=== PATIENT | male | born 1955 | race Caucasian/White ===

== ENCOUNTER 2020-08-24 02:02 | Inpatient (IN) | payer MEDICARE, OTHER ==
[2020-08-24 02:49] LABS: #Basophils 0.1 thou/uL (0.0-0.2); #Eosinphils 0.1 thou/uL (0.0-0.7); #Lymphocytes 1.5 thou/uL (1.20-3.40); #Monocytes 0.6 thou/uL (0.11-0.59); #Neutrophils 6.1 thou/uL (1.40-6.50); %Basophils 0.7 % (0.0-1.0); %Eosinophils 0.8 % (0.0-10.0); %Lymphocytes 18.4 % (21.0-51.0); %Monocytes 7.3 % (0.0-10.0); %Neutrophils 72.8 % (42.0-75.0); Hemoglobin 9.2 g/dL (14.0-18.0); Mean Corpuscular HGB CONC 33.5 g/dL (32.0-36.0); Mean Corpuscular Hemoglobin 31.9 pg (27.0-31.0); Mean Corpuscular Volume 95.3 fL (78.0-98.0); Mean Platelet Volume 8.1 fL (7.4-10.4); Platelet Count 607 thou/uL (130-400); RBC Distribution Width 12.7 % (11.5-14.5); White Blood Cell (WBC) Count 8.4 thou/uL (4.8-10.8)
[2020-08-24 02:56] LABS: INR-International Normal Ratio 1.2; PTT 24.8 sec (22.9-36.1); Prothrombin Time 15.1 sec (12.0-14.7)
[2020-08-24 03:05] LABS: ALT (SGPT) 9 U/L (8-55); AST (SGOT) 16 U/L (5-34); Albumin 2.7 g/dL (3.4-4.8); Alkaline Phosphatase 46 U/L (40-110); Anion Gap 14 mmol/L (10-20); BUN (Urea Nitrogen) 30 mg/dL (8.4-25.7); Bilirubin, Total 0.3 mg/dL (0.2-1.2); Calc. Creatinine Clearance 0 mL/min (70-130); Calcium 8.2 mg/dL (7.8-10.44); Carbon Dioxide 23 mmol/L (23-31); Chloride 110 mmol/L (98-107); Globulin 2.4 g/dL (2.4-3.5); Glucose 136 mg/dL (80-115); Lipase 100 U/L (8-78); Potassium 4.4 mmol/L (3.5-5.1); Protein, Total 5.1 g/dL (5.8-8.1); Sodium 143 mmol/L (136-145)
[2020-08-24] MEDS ORDERED: Senokot S 8.6-50 MG TAB PO PRN (04:02)
[2020-08-24] MEDS ORDERED: Sodium Chloride 0.9% 1,000 ML IV SCH ×3 (04:15→08:00)
[2020-08-24 05:05] LABS: Bacteria/HPF None Seen HPF (None Seen); Bilirubin Negative (Negative); Blood, Urine Trace (Negative); Clarity Clear (Clear); Glucose, Urine (Dipstick) Normal (Negative); Ketone, Urine Negative (Negative); Leukocyte Negative Leu/uL (Negative); Nitrite Negative (Negative); Protein, Urine (Dipstick) Negative (Neg-Trace); RBC/HPF 0-3 HPF (0-3); Specific Gravity, Urine 1.031 (1.002-1.036); Squamous Epithelial 0-3 HPF (0-3); Urobilinogen Normal mg/dL (Less than 2); WBC/HPF 0-3 HPF (0-3); pH, Urine 6.5 (5.0-9.0)
[2020-08-24 05:16] LABS: Iron 60 ug/dL (65-175); Iron Binding Capacity, Total 273 mcg/dL (261-462)
[2020-08-24 06:03] LABS: Lactic Acid 2.3 mmol/L (0.5-2.2)
[2020-08-24 07:09] LABS: SARS-CoV-2 NAA Rapid Test Not Detected (NotDetected)
[2020-08-24 07:46] LABS: Hemoglobin 9.1 g/dL (14.0-18.0)
[2020-08-24] MEDS ORDERED: Loperamide HCl 2 MG CAP PO PRN (07:51)
[2020-08-24] MEDS ORDERED: Loratadine 10 MG TAB PO PRN (07:51)
[2020-08-24] MEDS ORDERED: GUAIFENESIN SF SOLN 200 MG/10 ML UDCUP PO PRN (07:51)
[2020-08-24] MEDS ORDERED: Cepastat Lozenges 1 LOZ PO PRN (07:51)
[2020-08-24] MEDS ORDERED: hydrALAZINE 20 MG/ML VIAL SLOW IVP PRN (07:51)
[2020-08-24] MEDS ORDERED: Ondansetron ODT 4 MG TAB PO PRN (07:51)
[2020-08-24] MEDS ORDERED: Calcium Carbonate 500 MG ChewTAB PO PRN (07:51)
[2020-08-24] MEDS ORDERED: Ondansetron PF 4 MG/2 ML Vial IVP PRN (07:51)
[2020-08-24] MEDS ORDERED: Sodium Chloride 0.65% Nasal 44 ML BOT EA NARE PRN (07:51)
[2020-08-24] MEDS ORDERED: PROPOFOL 200 MG/20 ML VIAL ONE (08:07)
[2020-08-24] MEDS ORDERED: EPINEPHrine 1 MG/10 ML Abboject SYRINGE ONE ×2 (08:07→10:17)
[2020-08-24] MEDS ORDERED: Lidocaine 1% PF 5 ML VIAL ONE (08:07)
[2020-08-24] MEDS ORDERED: Famotidine 20 MG TAB PO SCH (09:00)
[2020-08-24] MEDS ORDERED: Iopamidol-370 76% 500 ML 1 ML ONE (09:19)
[2020-08-24] MEDS ORDERED: Promethazine HCl 25 MG/ML VIAL IM PRN (09:54)
[2020-08-24] MEDS ORDERED: Ondansetron HCl/PF 4 MG/2 ML Vial IVP PRN (09:54)
[2020-08-24] MEDS ORDERED: Promethazine HCl 25 MG/ML VIAL SLOW IVP PRN (09:54)
[2020-08-24] MEDS ORDERED: Fentanyl 100 MCG/2 ML VIAL ONE (10:51)
[2020-08-24 11:53] VITALS: BMI 27.2
[2020-08-24] MEDS: Pantoprazole 40 MG VIAL IVP SCH ×2 (11:59→22:27)
[2020-08-24] MEDS: Morphine 2 MG/ML VIAL SLOW IVP PRN ×2 (11:59→22:27)
[2020-08-24 13:09] LABS: Hemoglobin 9.8 g/dL (14.0-18.0)
[2020-08-24] MEDS: Sodium Chloride 0.9% 1,000 ML IV SCH ×2 (13:23→22:27)
[2020-08-24 13:33] LABS: ALT (SGPT) 32 U/L (8-55); AST (SGOT) 98 U/L (5-34); Albumin 2.7 g/dL (3.4-4.8); Alkaline Phosphatase 76 U/L (40-110); Bilirubin, Total 1.4 mg/dL (0.2-1.2); Lipase 66 U/L (8-78); Protein, Total 5.2 g/dL (5.8-8.1)
[2020-08-24 19:14] LABS: Hemoglobin 10.3 g/dL (14.0-18.0)
[2020-08-24] MEDS: Zolpidem Tartrate 5 MG TAB PO PRN (22:28)
[2020-08-25 01:41] LABS: Hemoglobin 8.2 g/dL (14.0-18.0)
[2020-08-25 03:51] LABS: #Eosinphils 0.1 thou/uL (0.0-0.7); #Monocytes 0.8 thou/uL (0.11-0.59); #Neutrophils 8.9 thou/uL (1.40-6.50); %Basophils 0.2 % (0.0-1.0); %Eosinophils 0.6 % (0.0-10.0); %Lymphocytes 16.9 % (21.0-51.0); %Monocytes 6.8 % (0.0-10.0); %Neutrophils 75.5 % (42.0-75.0); Hemoglobin 8.1 g/dL (14.0-18.0); Mean Corpuscular HGB CONC 33.9 g/dL (32.0-36.0); Mean Corpuscular Volume 91.5 fL (78.0-98.0); Mean Platelet Volume 8.6 fL (7.4-10.4); Platelet Count 381 thou/uL (130-400); RBC Distribution Width 14.2 % (11.5-14.5); Red Blood Cell (RBC) Count 2.62 mill/uL (4.70-6.10); White Blood Cell (WBC) Count 11.7 thou/uL (4.8-10.8)
[2020-08-25 04:19] LABS: ALT (SGPT) 33 U/L (8-55); AST (SGOT) 59 U/L (5-34); Albumin 2.5 g/dL (3.4-4.8); Alkaline Phosphatase 73 U/L (40-110); Anion Gap 8 mmol/L (10-20); BUN (Urea Nitrogen) 18 mg/dL (8.4-25.7); Bilirubin, Total 0.9 mg/dL (0.2-1.2); Calc. Creatinine Clearance 132 mL/min (70-130); Calcium 7.8 mg/dL (7.8-10.44); Carbon Dioxide 25 mmol/L (23-31); Chloride 112 mmol/L (98-107); Glucose 99 mg/dL (80-115); Potassium 3.4 mmol/L (3.5-5.1); Protein, Total 4.5 g/dL (5.8-8.1); Sodium 142 mmol/L (136-145)
[2020-08-25] MEDS: Pantoprazole 40 MG VIAL IVP SCH (08:42)
[2020-08-25] MEDS: Sodium Chloride 0.9% 1,000 ML IV SCH (11:34)
[2020-08-25] MEDS: Acetaminophen 325 MG TAB PO PRN (20:59)
[2020-08-25] MEDS: Zolpidem Tartrate 5 MG TAB PO PRN (21:00)
[2020-08-26] MEDS: Sodium Chloride 0.9% 1,000 ML IV SCH (05:20)
[2020-08-26 06:56] LABS: #Eosinphils 0.1 thou/uL (0.0-0.7); #Lymphocytes 1.1 thou/uL (1.20-3.40); #Monocytes 0.5 thou/uL (0.11-0.59); #Neutrophils 3.5 thou/uL (1.40-6.50); %Basophils 0.8 % (0.0-1.0); %Eosinophils 1.3 % (0.0-10.0); %Lymphocytes 21.6 % (21.0-51.0); %Neutrophils 67.4 % (42.0-75.0); Hemoglobin 5.9 g/dL (14.0-18.0); Mean Corpuscular HGB CONC 33.6 g/dL (32.0-36.0); Mean Corpuscular Volume 92.1 fL (78.0-98.0); Mean Platelet Volume 8.8 fL (7.4-10.4); Platelet Count 273 thou/uL (130-400); Red Blood Cell (RBC) Count 1.89 mill/uL (4.70-6.10); White Blood Cell (WBC) Count 5.2 thou/uL (4.8-10.8)
[2020-08-26] MEDS: Morphine 2 MG/ML VIAL SLOW IVP PRN ×2 (08:11→17:05)
[2020-08-26] MEDS ORDERED: Pantoprazole 40 MG VIAL IVP SCH ×4 (09:00→21:00)
[2020-08-26] MEDS ORDERED: Sodium Chloride 0.9% (PF) 10 ML VIAL FS PRN (09:30)
[2020-08-26] MEDS ORDERED: Pantoprazole 80 MG, Admixture Fee 1 EACH in Sodium Chloride 0.9% 100 ML IVPB SCH (09:30)
[2020-08-26] MEDS ORDERED: Iothalamate Meglumine 60% 50 ML VIAL FS ONE (09:46)
[2020-08-26] MEDS ORDERED: Indomethacin 50 MG SUPP ONE (09:48)
[2020-08-26] MEDS ORDERED: Ondansetron HCl/PF 4 MG/2 ML Vial IVP PRN (10:13)
[2020-08-26] MEDS ORDERED: Promethazine HCl 25 MG/ML VIAL IM PRN (10:13)
[2020-08-26] MEDS ORDERED: Promethazine HCl 25 MG/ML VIAL SLOW IVP PRN (10:13)
[2020-08-26] MEDS ORDERED: ePHEDrine 50 MG/ML VIAL ONE (10:25)
[2020-08-26] MEDS ORDERED: Lidocaine 1% PF 5 ML VIAL ONE (10:25)
[2020-08-26] MEDS ORDERED: Ondansetron PF 4 MG/2 ML Vial ONE (10:25)
[2020-08-26] MEDS ORDERED: PHENYLEPHRINE-NS 100 MCG/ML 10 ML SYRINGE ONE (10:25)
[2020-08-26] MEDS ORDERED: Dexamethasone 20 MG/5 ML VIAL ONE (10:25)
[2020-08-26] MEDS ORDERED: PROPOFOL 200 MG/20 ML VIAL ONE (10:25)
[2020-08-26] MEDS ORDERED: Succinylcholine 200 MG/10 ml SYRINGE FS ONE (10:25)
[2020-08-26] MEDS ORDERED: Fentanyl 100 MCG/2 ML VIAL ONE (10:50)
[2020-08-26 12:19] LABS: Hemoglobin 8.8 g/dL (14.0-18.0); Platelet Count 211 thou/uL (130-400)
[2020-08-26] MEDS: Pantoprazole 80 MG, Admixture Fee 1 EACH in Sodium Chloride 0.9% 100 ML IVPB SCH ×2 (12:23→22:00)
[2020-08-26 12:37] LABS: ALT (SGPT) 52 U/L (8-55); AST (SGOT) 109 U/L (5-34); Albumin 2.2 g/dL (3.4-4.8); Alkaline Phosphatase 202 U/L (40-110); Bilirubin, Direct 0.7 mg/dL (0.1-0.3); Bilirubin, Total 1.1 mg/dL (0.2-1.2); Protein, Total 4.3 g/dL (5.8-8.1)
[2020-08-26 18:02] LABS: Hemoglobin 9.4 g/dL (14.0-18.0)
[2020-08-26] MEDS ORDERED: Electrolyte Replacement Protocol FS PRN (20:00)
[2020-08-26] MEDS: Zolpidem Tartrate 5 MG TAB PO PRN (21:00)
[2020-08-26] MEDS: Acetaminophen 325 MG TAB PO PRN (21:00)
[2020-08-27] MEDS: Sodium Chloride 0.9% 1,000 ML IV SCH ×2 (03:26→05:56)
[2020-08-27 04:00] LABS: #Lymphocytes 1.6 thou/uL (1.20-3.40); #Monocytes 0.6 thou/uL (0.11-0.59); #Neutrophils 6.6 thou/uL (1.40-6.50); %Basophils 0.1 % (0.0-1.0); %Eosinophils 0.3 % (0.0-10.0); %Lymphocytes 18.2 % (21.0-51.0); %Monocytes 7.1 % (0.0-10.0); %Neutrophils 74.4 % (42.0-75.0); Hemoglobin 8.5 g/dL (14.0-18.0); Mean Corpuscular HGB CONC 35.3 g/dL (32.0-36.0); Mean Corpuscular Hemoglobin 32.6 pg (27.0-31.0); Mean Corpuscular Volume 92.5 fL (78.0-98.0); Mean Platelet Volume 9.4 fL (7.4-10.4); Platelet Count 193 thou/uL (130-400); RBC Distribution Width 14.6 % (11.5-14.5); Red Blood Cell (RBC) Count 2.61 mill/uL (4.70-6.10); White Blood Cell (WBC) Count 8.9 thou/uL (4.8-10.8)
[2020-08-27 04:20] LABS: ALT (SGPT) 42 U/L (8-55); AST (SGOT) 53 U/L (5-34); Albumin 2.3 g/dL (3.4-4.8); Alkaline Phosphatase 160 U/L (40-110); Anion Gap 11 mmol/L (10-20); BUN (Urea Nitrogen) 16 mg/dL (8.4-25.7); Bilirubin, Total 0.5 mg/dL (0.2-1.2); Calc. Creatinine Clearance 138 mL/min (70-130); Calcium 7.6 mg/dL (7.8-10.44); Carbon Dioxide 20 mmol/L (23-31); Chloride 113 mmol/L (98-107); Globulin 2.3 g/dL (2.4-3.5); Glucose 118 mg/dL (80-115); Lipase 33 U/L (8-78); Potassium 4.1 mmol/L (3.5-5.1); Protein, Total 4.6 g/dL (5.8-8.1); Sodium 140 mmol/L (136-145)
[2020-08-27] MEDS ORDERED: Potassium Chloride 20 MEQ TAB PO SCH (06:30)
[2020-08-27] MEDS: Pantoprazole 80 MG, Admixture Fee 1 EACH in Sodium Chloride 0.9% 100 ML IVPB SCH (17:06)
[2020-08-27] MEDS: Zolpidem Tartrate 5 MG TAB PO PRN (20:40)
[2020-08-27] MEDS: Acetaminophen 325 MG TAB PO PRN (20:40)
[2020-08-28] MEDS: Sodium Chloride 0.9% 1,000 ML IV SCH ×3 (00:53→16:53)
[2020-08-28] MEDS: Pantoprazole 80 MG, Admixture Fee 1 EACH in Sodium Chloride 0.9% 100 ML IVPB SCH ×2 (03:16→19:47)
[2020-08-28 07:44] LABS: #Basophils 0.1 thou/uL (0.0-0.2); #Eosinphils 0.3 thou/uL (0.0-0.7); #Lymphocytes 2.1 thou/uL (1.20-3.40); #Monocytes 0.6 thou/uL (0.11-0.59); #Neutrophils 5.8 thou/uL (1.40-6.50); %Basophils 0.7 % (0.0-1.0); %Eosinophils 3.1 % (0.0-10.0); %Lymphocytes 23.7 % (21.0-51.0); %Monocytes 7.2 % (0.0-10.0); %Neutrophils 65.3 % (42.0-75.0); Hemoglobin 7.6 g/dL (14.0-18.0); Mean Corpuscular HGB CONC 33.9 g/dL (32.0-36.0); Mean Corpuscular Volume 94.4 fL (78.0-98.0); Mean Platelet Volume 8.5 fL (7.4-10.4); Platelet Count 257 thou/uL (130-400); RBC Distribution Width 14.8 % (11.5-14.5); Red Blood Cell (RBC) Count 2.38 mill/uL (4.70-6.10); White Blood Cell (WBC) Count 8.9 thou/uL (4.8-10.8)
[2020-08-28 08:01] LABS: ALT (SGPT) 27 U/L (8-55); AST (SGOT) 25 U/L (5-34); Albumin 2.3 g/dL (3.4-4.8); Alkaline Phosphatase 117 U/L (40-110); Bilirubin, Direct 0.2 mg/dL (0.1-0.3); Bilirubin, Total 0.4 mg/dL (0.2-1.2); Protein, Total 4.3 g/dL (5.8-8.1)
[2020-08-28 14:22] LABS: Hemoglobin 8.7 g/dL (14.0-18.0); Platelet Count 261 thou/uL (130-400)
[2020-08-28] MEDS: Rosuvastatin 20 MG TAB PO SCH ×2 (19:47→19:51)
[2020-08-28] MEDS: Zolpidem Tartrate 5 MG TAB PO PRN (21:53)
[2020-08-29 04:46] LABS: #Eosinphils 0.3 thou/uL (0.0-0.7); #Lymphocytes 1.9 thou/uL (1.20-3.40); #Monocytes 0.7 thou/uL (0.11-0.59); #Neutrophils 3.6 thou/uL (1.40-6.50); %Basophils 0.5 % (0.0-1.0); %Eosinophils 4.5 % (0.0-10.0); %Lymphocytes 29.2 % (21.0-51.0); %Monocytes 10.3 % (0.0-10.0); %Neutrophils 55.4 % (42.0-75.0); Hemoglobin 7.4 g/dL (14.0-18.0); Mean Corpuscular HGB CONC 34.4 g/dL (32.0-36.0); Mean Corpuscular Hemoglobin 32.3 pg (27.0-31.0); Mean Platelet Volume 7.9 fL (7.4-10.4); Platelet Count 273 thou/uL (130-400); RBC Distribution Width 15.2 % (11.5-14.5); Red Blood Cell (RBC) Count 2.29 mill/uL (4.70-6.10); White Blood Cell (WBC) Count 6.5 thou/uL (4.8-10.8)
[2020-08-29 05:16] LABS: Anion Gap 8 mmol/L (10-20); BUN (Urea Nitrogen) 6 mg/dL (8.4-25.7); Calc. Creatinine Clearance 134 mL/min (70-130); Calcium 7.7 mg/dL (7.8-10.44); Carbon Dioxide 27 mmol/L (23-31); Chloride 110 mmol/L (98-107); Glucose 98 mg/dL (80-115); Sodium 142 mmol/L (136-145)
[2020-08-29] MEDS: Levothyroxine Sodium 50 MCG TAB PO SCH (05:22)
[2020-08-29] MEDS: Pantoprazole 80 MG, Admixture Fee 1 EACH in Sodium Chloride 0.9% 100 ML IVPB SCH ×2 (06:00→17:46)
[2020-08-29] MEDS ORDERED: Potassium Chloride 20 MEQ TAB PO SCH (06:30)
[2020-08-29] MEDS ORDERED: Magnesium 2 GM/50 ML 2 GM in Premix Bag 1 BAG IVPB SCH (06:30)
[2020-08-29] MEDS: Sodium Chloride 0.9% 1,000 ML IV SCH (10:17)
[2020-08-29 11:27] LABS: #Eosinphils 0.3 thou/uL (0.0-0.7); #Lymphocytes 1.9 thou/uL (1.20-3.40); #Monocytes 0.6 thou/uL (0.11-0.59); #Neutrophils 4.3 thou/uL (1.40-6.50); %Basophils 0.2 % (0.0-1.0); %Eosinophils 3.8 % (0.0-10.0); %Lymphocytes 26.5 % (21.0-51.0); %Neutrophils 60.5 % (42.0-75.0); Hemoglobin 8.2 g/dL (14.0-18.0); Mean Corpuscular HGB CONC 33.9 g/dL (32.0-36.0); Mean Corpuscular Hemoglobin 32.1 pg (27.0-31.0); Mean Corpuscular Volume 94.7 fL (78.0-98.0); Mean Platelet Volume 8.2 fL (7.4-10.4); Platelet Count 315 thou/uL (130-400); RBC Distribution Width 15.7 % (11.5-14.5); Red Blood Cell (RBC) Count 2.56 mill/uL (4.70-6.10); White Blood Cell (WBC) Count 7.1 thou/uL (4.8-10.8)
[2020-08-29] MEDS: Zolpidem Tartrate 5 MG TAB PO PRN (21:39)
[2020-08-29] MEDS: Rosuvastatin 20 MG TAB PO SCH (21:39)
[2020-08-30] MEDS: Pantoprazole 80 MG, Admixture Fee 1 EACH in Sodium Chloride 0.9% 100 ML IVPB SCH (04:18)
[2020-08-30] MEDS: Levothyroxine Sodium 50 MCG TAB PO SCH (06:03)
[2020-08-30] MEDS ORDERED: Magnesium 2 GM/50 ML 2 GM in Premix Bag 1 BAG IVPB SCH (06:15)
[2020-08-30 08:49] LABS: #Basophils 0.1 thou/uL (0.0-0.2); #Eosinphils 0.3 thou/uL (0.0-0.7); #Lymphocytes 1.5 thou/uL (1.20-3.40); #Monocytes 0.6 thou/uL (0.11-0.59); #Neutrophils 4.8 thou/uL (1.40-6.50); %Basophils 0.9 % (0.0-1.0); %Eosinophils 3.7 % (0.0-10.0); %Lymphocytes 20.9 % (21.0-51.0); %Monocytes 8.1 % (0.0-10.0); %Neutrophils 66.3 % (42.0-75.0); Hemoglobin 9.4 g/dL (14.0-18.0); Mean Corpuscular HGB CONC 34.3 g/dL (32.0-36.0); Mean Corpuscular Hemoglobin 33.2 pg (27.0-31.0); Mean Corpuscular Volume 96.8 fL (78.0-98.0); Mean Platelet Volume 7.7 fL (7.4-10.4); Platelet Count 341 thou/uL (130-400); RBC Distribution Width 17.4 % (11.5-14.5); Red Blood Cell (RBC) Count 2.82 mill/uL (4.70-6.10); White Blood Cell (WBC) Count 7.2 thou/uL (4.8-10.8)
[2020-08-30 12:42] VITALS: BP 141/88; TEMP 98.1
== END 2020-08-30 14:22 | disposition home or self-care (01) | DRG 919 ==
LOC: ERS 02:02 → CCU 04:00 → ERHOLD 04:02 → IMCU/EMU 09:52 → T4-A 08-25 16:44 → CCU 08-26 10:06 → 2NO 08-27 16:02
PROVIDERS: ADMIT Internal Medicine; ATTEND Internal Medicine
PROC: 0W3P8ZZ Control Bleeding in Gastrointestinal Tract, Via Natural or Artificial Opening Endoscopic (ICD-10-PCS; principal; 2020-08-24)
PROC: 30233R1 Transfusion of Nonautologous Platelets into Peripheral Vein, Percutaneous Approach (ICD-10-PCS; 2020-08-24)
PROC: 30233N1 Transfusion of Nonautologous Red Blood Cells into Peripheral Vein, Percutaneous Approach (ICD-10-PCS; 2020-08-24)
PROC: 0W3P8ZZ Control Bleeding in Gastrointestinal Tract, Via Natural or Artificial Opening Endoscopic (ICD-10-PCS; 2020-08-26)
PROC: 0DC68ZZ Extirpation of Matter from Stomach, Via Natural or Artificial Opening Endoscopic (ICD-10-PCS; 2020-08-26)
DX: K91.840 Postprocedural hemorrhage of a digestive system organ or structure following a digestive system procedure (principal); R57.8 Other shock; D62 Acute posthemorrhagic anemia; K92.2 Gastrointestinal hemorrhage, unspecified; E87.2 Acidosis; K91.89 Other postprocedural complications and disorders of digestive system; E03.9 Hypothyroidism, unspecified; E78.5 Hyperlipidemia, unspecified; I10 Essential (primary) hypertension; I25.10 Atherosclerotic heart disease of native coronary artery without angina pectoris; K83.8 Other specified diseases of biliary tract; Y83.8 Other surgical procedures as the cause of abnormal reaction of the patient, or of later complication, without mention of misadventure at the time of the procedure; Z20.822 Contact with and (suspected) exposure to COVID-19; Z95.5 Presence of coronary angioplasty implant and graft; I25.2 Old myocardial infarction; Z90.49 Acquired absence of other specified parts of digestive tract; Z90.81 Acquired absence of spleen; Z79.02 Long term (current) use of antithrombotics/antiplatelets; Z79.82 Long term (current) use of aspirin; Z79.01 Long term (current) use of anticoagulants
CPT/HCPCS: 36415; 36430; 71045; 74177; 74330; 80048; 80053; 80076; 81003; 81015; 82728; 83540; 83550; 83605; 83690; 83735; 84484; 85025; 85610; 85730; 86850; 86900; 86901; 93005; C9113; J0171; J1100; J1956; J2270; J2405; J2704; J3010; J3475; J3490; P9016; P9035; Q9961; Q9967; U0002